=== PATIENT | male | born 2005 | race African-American/Black ===

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

== ENCOUNTER 2025-06-06 17:30 | Emergency (ER) | payer OTHER, SELFPAY ==
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
[2025-06-06 17:38] VITALS: BP 121/69; PULSE 74; RESP 18; TEMP 37.4; O2SAT 100
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
== END 2025-06-06 18:50 | disposition home or self-care (01) ==
PROVIDERS: Emergency Provider Nurse Practitioner
DX: S80.12XA Contusion of left lower leg, initial encounter (principal); V49.40XA Driver injured in collision with unspecified motor vehicles in traffic accident, initial encounter
CPT/HCPCS: 73590; 99213; G0463